=== PATIENT | male | born 1940 | race Caucasian/White ===

== ENCOUNTER 2018-10-03 17:33 | Inpatient (IN) ==
[2018-10-03] MEDS ORDERED: AMPICILLIN/SULBACTAM SOD 3,000 MG in 0.9 % SODIUM CHLORIDE 100 ML IV STA (18:12)
[2018-10-03] MEDS ORDERED: SODIUM CHLORIDE 0.9% 1000ML 1,000 ML IV SCH (18:15)
--- NOTE | 2018-10-03 18:21 | Emergency Department Note ---
Entered by Reid Mcconnell acting as a scribe for Trevor Allen MD History of Present Illness General Chief complaint: Shortness of Breath/Dyspnea Stated complaint: BLOOD CLOTS IN LUNGS Time Seen by Provider: 10/03/18 17:44 Source: patient History of Present Illness Onset (ago): day(s) (18) Location: abdomen Pain Consistency: + other (persistent) Quality: + other (bilateral pulmonary emboli and diverticulitis) Associated symptoms: no chest pain, no nausea/vomiting and no shortness of breath The patient is a 78 year old male who presents to the Emergency Room after referral from his PCP for an outpatient CT of the abdomen showing bilateral pulmonary emboli and diverticulitis. The patient reports that the CT was taken 3 days ago, and results were obtained today. He reports some persistent upper abdominal pain but denies any chest pain, shortness of breath, nausea, or vomiting. He states that he is on Coumadin for atrial fibrillation, and he was temporarily off of it for a week due to a colonoscopy performed on September 13. He notes that his most recent INR was normal, and he does not recall any history of sudden changes in his INR. He states that his current symptoms started 18 days ago, two days after his colonoscopy. He notes that his abdominal pain initially started in the lower region and migrated to the upper region. Home Medications Home Medications Medication Instructions Recorded Confirmed Type allopurinol 300 mg PO DAILY 10/03/18 10/03/18 History benazepril 10 mg PO DAILY 10/03/18 10/03/18 History cholecalciferol (vitamin D3) 0 unit PO DAILY 10/03/18 10/03/18 History [Vitamin D3] docusate sodium 100 mg PO BID 10/03/18 10/03/18 History finasteride 5 mg PO DAILY 10/03/18 10/03/18 History fluticasone propionate [Flonase 2 spray INTRANASAL DAILY 10/03/18 10/03/18 History Allergy Relief] magnesium 0 mg PO DAILY 10/03/18 10/03/18 History metoprolol succinate 100 mg PO DAILY 10/03/18 10/03/18 History omeprazole 20 mg PO DAILY 10/03/18 10/03/18 History polyethylene glycol 3350 [Miralax] 17 g PO DAILY PRN 10/03/18 10/03/18 History solifenacin [Vesicare] 5 mg PO DAILY 10/03/18 10/03/18 History tamsulosin [Flomax] 0.4 mg PO DAILY 10/03/18 10/03/18 History vit C,B-Fv-objar-lutein-zeaxan 1 tab PO BID 10/03/18 10/03/18 History [PreserVision AREDS-2] vitamin B complex 1 cap PO DAILY 10/03/18 10/03/18 History warfarin [Coumadin] 4 mg PO Q OTHER DAY 10/03/18 10/03/18 History warfarin [Coumadin] 8 mg PO Q OTHER DAY 10/03/18 10/03/18 History Allergies Allergy/AdvReac Type Severity Reaction Status Date / Time No Known Allergies Allergy Unverified 10/03/18 19:15 Past Med/Surg History Medical History Atrial fibrillation Surgical History History of colonoscopy Family History Other Family history non-contributory Social History Preferred Language: Kinyarwanda Communication Ability: Effective [employer] Architect Required: No Beliefs That Will Affect Care: None Current Living Situation: Spouse Feels Safe at Home: Yes Safety Concerns: Feels Safe At This Time Smoking Status: Never smoker Hx Alcohol Use: Yes Alcohol type: beer Hx Substance Use: No Review of Systems See HPI for pertinent positives & negatives. and A total of 10 systems reviewed and were otherwise negative Physical Exam Vital Signs Vital Signs - 24 hr 10/03/18 17:34 10/03/18 17:36 10/03/18 17:51 Temperature 37.1 C Temperature Source Oral Sepsis Recent Fever Within 48 Hours No Sepsis New/Unexplained Change in Mental Status No Sepsis Action Taken by Nursing No Action Required Pulse Rate 109 H 100 H Pulse Rate from SpO2 Sensor Pulse Rhythm Respiratory Rate 18 22 Respiratory Effort / Characteristics Non-Labored Spontaneous Non-Labored Spontaneous Respiratory Depth Normal Normal Respiratory Pattern Regular Regular Blood Pressure 168/90 H Blood Pressure Mean 116 Blood Pressure Position Sitting Pulse Oximetry 95 96 Oxygen Delivery Method Room Air Room Air Oxygen Flow Rate 94 10/03/18 18:00 10/03/18 18:10 10/03/18 18:30 Temperature Temperature Source Sepsis Recent Fever Within 48 Hours Sepsis New/Unexplained Change in Mental Status Sepsis Action Taken by Nursing Pulse Rate 95 H 115 H 97 H Pulse Rate from SpO2 Sensor Pulse Rhythm Irregular Respiratory Rate 25 H 24 Respiratory Effort / Characteristics Respiratory Depth Respiratory Pattern Blood Pressure Blood Pressure Mean Blood Pressure Position Pulse Oximetry 96 98 95 Oxygen Delivery Method Room Air Oxygen Flow Rate 10/03/18 19:00 10/03/18 19:29 10/03/18 19:31 Temperature Temperature Source Sepsis Recent Fever Within 48 Hours Sepsis New/Unexplained Change in Mental Status Sepsis Action Taken by Nursing Pulse Rate 106 H 98 H 128 H Pulse Rate from SpO2 Sensor 120 H Pulse Rhythm Respiratory Rate 21 19 21 Respiratory Effort / Characteristics Respiratory Depth Respiratory Pattern Blood Pressure 172/101 H Blood Pressure Mean 124 Blood Pressure Position Pulse Oximetry 96 97 95 Oxygen Delivery Method Oxygen Flow Rate 10/03/18 20:00 10/03/18 20:01 10/03/18 21:00 Temperature Temperature Source Sepsis Recent Fever Within 48 Hours Sepsis New/Unexplained Change in Mental Status Sepsis Action Taken by Nursing Pulse Rate 93 H 82 85 Pulse Rate from SpO2 Sensor Pulse Rhythm Respiratory Rate 22 24 20 Respiratory Effort / Characteristics Respiratory Depth Respiratory Pattern Blood Pressure 162/94 H 162/94 H Blood Pressure Mean 116 116 Blood Pressure Position Pulse Oximetry 98 97 Oxygen Delivery Method Oxygen Flow Rate 10/03/18 21:01 Temperature Temperature Source Sepsis Recent Fever Within 48 Hours Sepsis New/Unexplained Change in Mental Status Sepsis Action Taken by Nursing Pulse Rate 84 Pulse Rate from SpO2 Sensor Pulse Rhythm Respiratory Rate 24 Respiratory Effort / Characteristics Respiratory Depth Respiratory Pattern Blood Pressure 164/101 H Blood Pressure Mean 122 Blood Pressure Position Pulse Oximetry Oxygen Delivery Method Oxygen Flow Rate GENERAL: Awake, alert, fatigued-appearing, in no distress HENT: Normocephalic, atraumatic. Oropharynx unremarkable. EYES: Normal conjunctiva. Sclera non-icteric. NECK: Supple. No nuchal rigidity. FROM. No JVD. RESPIRATORY: Clear to auscultation bilaterally. CARDIAC: Tachycardic rate, irregular rhythm. Extremities warm and well perfused. Pulses equal. ABDOMEN: Soft, non-distended. Generalized abdominal discomfort without discrete tenderness. No rebound or guarding. No masses. RECTAL: Deferred. MUSCULOSKELETAL: Chest examination reveals no tenderness. The back is symmet rical on inspection without obvious abnormality. There is no CVA tenderness to palpation. No joint edema. LOWER EXTREMITIES: Calves are equal size bilaterally and non-tender. No edema. No discoloration. NEURO: Normal sensorium. No sensory or motor deficits noted. SKIN: No rash or jaundice noted. Course 1755: The patient was evaluated in room A9B. A complete history and physical examination were performed. 1805: I informed [facility] of the patients case. She requests we obtain a CT of the chest. 1954: [facility]. The patient will be reevaluated for hospitalization. Administered Medications Sodium Chloride (Nss 1000ml) 1,000 mls @ 50 mls/hr IV .Q20H ONE Stop: 10/04/18 18:00 Last Admin: 10/03/18 23:11 Dose: 50 mls/hr Documented by: [id number] Miscellaneous (Order Awaiting Action) 1 ea N/A QS KUN Stop: 11/03/18 00:00 Last Admin: 10/03/18 23:20 Dose: Not Given Documented by: [id number] Discontinued Medications Benazepril HCl (Lotensin) 10 mg PO 2100 ONE Stop: 10/03/18 21:01 Last Admin: 10/03/18 20:57 Dose: 10 mg Documented by: [id number] Sodium Chloride (Nss 1000ml) 1,000 mls @ 999 mls/hr IV .Q1H1M KUN Stop: 10/03/18 19:15 Last Infusion: 10/03/18 19:29 Dose: 0 mls/hr Documented by: [id number] Admin: 10/03/18 18:29 Dose: 999 mls/hr Documented by: [id number] Ampicillin Sodium/Sulbactam Sodium 3,000 mg/ Sodium Chloride 108 mls @ 200 mls/hr IV NOW STA; Protocol Stop: 10/03/18 18:44 Last Infusion: 10/03/18 19:04 Dose: 0 mls/hr Documented by: [id number] Admin: 10/03/18 18:29 Dose: 200 mls/hr Documented by: [id number] Sodium Chloride (Nss 1000ml) 1,000 mls @ 150 mls/hr IV .Q6H40M ONE Stop: 10/04/18 02:47 Last Admin: 10/03/18 20:59 Dose: Not Given Documented by: [id number] Ioversol (Optiray 320 125ml) 117 ml IV ONCE PRN PRN Reason: Interaction Checking Stop: 10/07/18 19:19 Last Admin: 10/03/18 19:20 Dose: 117 ml Documented by: [id number] Metoprolol Succinate (Toprol Xl) 100 mg PO 2100 ONE Stop: 10/03/18 21:01 Last Admin: 10/03/18 20:57 Dose: 100 mg Documented by: [id number] Warfarin Sodium (Coumadin) 2 mg PO NOW STA Stop: 10/03/18 21:39 Last Admin: 10/03/18 22:21 Dose: 2 mg Documented by: [id number] Medical Decision Making Differential Diagnosis Differential diagnosis includes: appendicitis, diverticulitis, PUD, biliary pathology, UTI, pancreatitis, obstruction, mesenteric ischemia, aortic p athology, infections, inflammatory bowel disease, renal colic, as well as others were entertained. Medical Records Attestation: I reviewed the patient's medical records. Home Medications Current Medication List: was personally reviewed by me Laboratory Data Attestation: I reviewed the patient's lab results. Result diagrams: 10/03/18 17:50 10/03/18 17:50 Lab Results 10/03/18 10/03/18 10/03/18 Range/Units 17:50 17:50 17:50 WBC 9.19 (4.8-10.8) K/uL RBC 4.33 L (4.7-6.1) M/uL Hgb 14.0 (14.0-18.0) g/dL Hct 40.6 L (42-52) % MCV 93.8 (80-100) fL MCH 32.3 (25-34) pg MCHC 34.5 (32-36) g/dL RDW Std Deviation 48.8 H (36.4-46.3) fL RDW Coeff of Chi 14.2 (11.5-14.5) % Plt Count 334 (130-400) K/uL MPV 9.0 (7.4-10.4) fL Immature Gran % (Auto) 1.4 % Neut % (Auto) 63.6 % Lymph % (Auto) 27.6 % Gibson % (Auto) 6.2 % Eos % (Auto) 1.0 % Baso % (Auto) 0.2 % Immature Gran # (Auto) 0.13 H (0.00-0.02) K/uL Neut # (Auto) 5.84 (1.4-6.5) K/uL Lymph # (Auto) 2.54 (1.2-3.4) K/uL Gibson # (Auto) 0.57 (0.11-0.59) K/uL Eos # (Auto) 0.09 (0-0.5) K/uL Baso # (Auto) 0.02 (0-0.2) K/uL PT 19.5 H (9.0-12.0) Seconds INR 2.0 H (0.9-1.1) Sodium 137 (136-145) mmol/L Potassium 4.5 (3.5-5.1) mmol/L Chloride 104 (98-107) mmol/L Carbon Dioxide 26 (21-32) mmol/L Anion Gap 7.0 (3-11) BUN 14 (7-18) mg/dl Creatinine 0.80 (0.6-1.4) mg/dl Est Cr Clr Drug Dosing 79.7 ml/min Est GFR ( Amer) 98.5 Est GFR (Non-Af Amer) 85.0 BUN/Creatinine Ratio 18.0 (10-20) Glucose 113 H (70-99) mg/dl Calcium 9.8 (8.5-10.1) mg/dl Magnesium 2.2 (1.8-2.4) mg/dl Total Bilirubin 0.4 (0.2-1) mg/dl Direct Bilirubin 0.1 (0-0.2) mg/dl AST 28 (15-37) U/L ALT 54 (12-78) U/L Alkaline Phosphatase 74 (45-117) U/L Troponin I < 0.015 (0-0.045) ng/ml NT-Pro-B Natriuret Pep 854 (0-1800) pg/ml Total Protein 7.3 (6.4-8.2) gm/dl Albumin 2.7 L (3.4-5.0) gm/dl Globulin 4.6 H (2.5-4.0) gm/dl Albumin/Globulin Ratio 0.6 L (0.9-2) Lipase 172 (73-393) U/L Imaging Data Radiologist's Impression: Radiology results as stated below per my review and the radiologist's interpretation: CT angio chest PE protocol CT DOSE: 512.66 mGy.cm HISTORY: Chest pain PE TECHNIQUE: Multiaxial CT images of the chest were performed following the intravenous administration of contrast to evaluate the pulmonary arteries. Maximal intensity projection images were also obtained. A dose lowering technique was utilized adhering to the principles of ALARA. COMPARISON STUDY: None. FINDINGS: Study is positive for bilateral pulmonary emboli. There is a large pulmonary embolus involving the distal right main pulmonary artery with extension to the right lower lobe as well as proximal right upper lobe pulmonary vasculature. Similar but less prominent findings are identified involving the left lower lobe pulmonary arterial distribution. There are findings of atelectatic atelectatic change versus early pulmonary infarct involving the right as well as left lower lobe regions. IMPRESSION: 1. This study is positive for bilateral pulmonary emboli. 2. This involves primarily the right as well as left lower lobe pulmonary arterial distributions as well as distal aspects of the main pulmonary arteries bilaterally. 3. Developing bibasilar pulmonary infarcts versus peripheral atelectatic change. The above report was generated using voice recognition software. It may contain grammatical, syntax or spelling errors. Electronically signed by: Elvis Jerez M.D. 10/03/2018 7:28 PM XR chest 1V portable CLINICAL HISTORY: Chest Pain pain COMPARISON STUDY: No previous studies for comparison. FINDINGS: Mild cardiomegaly. Mild prominence pulmonary vasculature. Mild platelike atelectasis both lung bases. IMPRESSION: Mild cardiomegaly. No acute process. The above report was generated using voice recognition software. It may contain grammatical, syntax or spelling errors. Electronically signed by: Elvis Jerez M.D. 10/03/2018 6:29 PM ECG Data Attestation: I personally reviewed and interpreted this ECG as follows: Indication: tachycardia Rate (beats per minute): 108 Rhythm: atrial fibrillation (with RVR) Findings: + other (normal axis, no overt ischemia) MDM Narrative The patient is a pleasant 78-year-old gentleman with a past medical history of atrial fibrillation on Coumadin who presents emergency department for evaluation after bilateral pulmonary embolism with associated infarctions and diverticulitis were observed on outpatient CT of his abdomen pelvis performed for ongoing abdominal pain since a colonoscopy on September 13 per hpi. Of note, the patient reports stopping his Coumadin 1 week prior to his colonoscopy and then resumed his Coumadin the day after. Patient denies chest pain or shortness of breath however reports he has had ongoing migraine abdominal pain since his colonoscopy. On arrival patient is in no acute distress, afebrile with heart rate in the 100s and vital signs otherwise stable. EKG demonstrates A. fib without overt acute ischemia. Chest x-ray with platelike atelectasis and otherwise unremarkable. WBC, hemoglobin, platelets within normal limits. INR is therapeutic at 2.0. Chemistry without acidosis. Troponin negative. BNP within normal limits. Electrolytes and LFTs unremarkable. Case was discussed with Aurelia CAAL shortly after patient's arrival given the patient's outpatient CT findings. Requests CT of the chest to further evaluate clot burden. CT of the chest performed and demonstrates bilateral pulmonary emboli with involvement of distal main pulmonary arteries and evidence of developing infarcts. Case was discussed with Dr. Campos, [facility] hospitalist, who will evaluate the patient for admission. He will evaluate the patient and decide on anticoagulation going forward. Impression & Plan Pulmonary embolism, bilateral, Pulmonary infarction, Diverticulitis Discharge Plan Visit Data *Final* Discharge Date/Time: 10/03/18 21:51 Chief Complaint: Shortness of Breath/Dyspnea Stated Complaint: BLOOD CLOTS IN LUNGS ED Provider: Trevor Allen Discharge Problem: Pulmonary embolism, bilateral, Pulmonary infarction, Diverticulitis Patient Disposition: Admitted As Inpatient Discharge Instructions Interventions: ED Discharge Assessment Last Done: 10/03/18 21:51 The scribe's documentation has been prepared under my direction and personally reviewed by me in its entirety. I confirm that the note above accurately reflects all work, treatment, procedures, and medical decision making performed by me.
[2018-10-03 18:25] LABS: Basophils # (auto) 0.02 K/uL (0-0.2); Basophils % (auto) 0.2 %; Eosinophils # (auto) 0.09 K/uL (0-0.5); Hematocrit (blood only) 40.6 % (42-52); Immature Granulocytes # (auto) 0.13 K/uL (0.00-0.02); Immature Granulocytes % (auto) 1.4 %; Lymphocytes # (auto) 2.54 K/uL (1.2-3.4); Lymphocytes % (auto) 27.6 %; Mean Corpuscular Hgb Conc 34.5 g/dL (32-36); Mean Corpuscular Volume 93.8 fL (80-100); Monocytes # (auto) 0.57 K/uL (0.11-0.59); Monocytes % (auto) 6.2 %; Neutrophils # (auto) 5.84 K/uL (1.4-6.5); Neutrophils % (auto) 63.6 %; Platelet Count 334 K/uL (130-400); RDW Coefficient of Variation 14.2 % (11.5-14.5); RDW Standard Deviation 48.8 fL (36.4-46.3); Red Blood Count 4.33 M/uL (4.7-6.1); White Blood Count 9.19 K/uL (4.8-10.8)
--- NOTE | 2018-10-03 18:30 | XRay Report ---
XR chest 1V portable CLINICAL HISTORY: Chest Pain pain COMPARISON STUDY: No previous studies for comparison. FINDINGS: Mild cardiomegaly. Mild prominence pulmonary vasculature. Mild platelike atelectasis both l lizz bases. IMPRESSION: Mild cardiomegaly. No acute process. The above report was generated using voice recognition software. It may contain grammatical, syntax or spelling errors. Electronically signed by: Elvis Jerez M.D. 10/03/2018 6:29 PM
[2018-10-03 18:38] LABS: Alanine Aminotransferase 54 U/L (12-78); Albumin Level 2.7 gm/dl (3.4-5.0); Aspartate Aminotransferase 28 U/L (15-37); Bilirubin Direct 0.1 mg/dl (0-0.2); Blood Urea Nitrogen 14 mg/dl (7-18); Calcium 9.8 mg/dl (8.5-10.1); Carbon Dioxide 26 mmol/L (21-32); Chloride 104 mmol/L (98-107); Creatinine Clr Calc Pharmacy 79.7 ml/min; Est GFR (African American) 98.5; Glucose 113 mg/dl (70-99); Magnesium 2.2 mg/dl (1.8-2.4); Potassium 4.5 mmol/L (3.5-5.1); Sodium 137 mmol/L (136-145)
[2018-10-03 18:43] LABS: Albumin Globulin Ratio 0.6 (0.9-2); Alkaline Phosphatase 74 U/L (45-117); Bilirubin,Total 0.4 mg/dl (0.2-1); Globulin 4.6 gm/dl (2.5-4.0); NT Pro B Type Natriuretic Pept 854 pg/ml (0-1800); Total Protein 7.3 gm/dl (6.4-8.2); Troponin I < 0.015 ng/ml (0-0.045)
[2018-10-03 18:44] LABS: Prothrombin Time 19.5 Seconds (9.0-12.0)
[2018-10-03] MEDS ORDERED: OPTIRAY 320 125ml IV PRN (19:20)
--- NOTE | 2018-10-03 19:29 | CT Scan Report ---
CT angio chest PE protocol CT DOSE: 512.66 mGy.cm HISTORY: Chest pain PE TECHNIQUE: Multiaxial CT images of the chest were performed following the intravenous administration of contrast to evaluate the pulmonary arteries. Maximal intensity projection images were also obtaine d. A dose lowering technique was utilized adhering to the principles of ALARA. COMPARISON STUDY: None. FINDINGS: Study is positive for bilateral pulmonary emboli. There is a large pulmonary embolus involv ing the distal right main pulmonary artery with extension to the right lower lobe as well as proximal right upper lobe pulmonary vasculature. Similar but less prominent findings are identified involving the left lower lobe pulmonary arterial d istribution. There are findings of atelectatic atelectatic change versus early pulmonary infarct involving the rig ht as well as left lower lobe regions. IMPRESSION: 1. This study is positive for bilateral pulmonary emboli. 2. This involves primarily the right as well as left lower lobe pulmonary arterial distributions as w ell as distal aspects of the main pulmonary arteries bilaterally. 3. Developing bibasilar pulmonary infarcts versus peripheral atelectatic change. The above report was generated using voice recognition software. It may contain grammatical, syntax or spelling errors. Electronically signed by: Elvis Jerez M.D. 10/03/2018 7:28 PM
[2018-10-03] MEDS ORDERED: METOPROLOL TARTRATE 1 MG/ML VIAL IV STA (20:08)
[2018-10-03] MEDS ORDERED: SODIUM CHLORIDE 0.9% 1000ML 1,000 ML IV ONE ×2 (20:08→22:01)
[2018-10-03] MEDS ORDERED: METOPROLOL SUCC 50MG EXT REL TAB PO ONE (21:00)
[2018-10-03] MEDS ORDERED: BENAZEPRIL HCL 10 MG TAB PO ONE (21:00)
--- NOTE | 2018-10-03 21:27 | History & Physical Report ---
Date of Service October 03, 2018 Assessment & Plan (1) Pulmonary embolism, bilateral: First episode Recent GI illness (uncomplicated diverticulitis) may have predisposed patient, patient not septic. Coumadin for A. fib temporarily held halted 3 weeks ago for colonoscopy procedure. INR slightly subtherapeutic last September 28 Rule out LE veins as source of PE A. fib on Coumadin, rate controlled, INR therapeutic hypertension, elevated secondary to medication noncompliance (Patient admits to taking his 2 BP meds an every other day schedule despite recommended daily intake. hyperlipidemia on statin Rx BPH on meds prediabetes as to per records, recent outpatient hemoglobin A1c of 5.7 last August 2018 past tobacco abuse Medical telemetry Continue Coumadin INR goal between 2 and 3 LE venous Dopplers rule out DVT Facilitate home BP meds, patient instructed to take home BP meds as per schedule daily instructions Clear liquids for now, Augmentin course for uncomplicated diverticulitis. DVT prophylaxis. Coumadin INR goal 2-3 Full code History of Present Illness Chief Complaint: Abnormal CAT scan Primary Care Provider: Xochilt Quiroz DO History obtained from patient, family, and records. Medical history significant for A. fib on Coumadin, hypertension, hyperlipidemia, BPH, diverticulosis, hemorrhoids, prediabetes as per records, past tobacco abuse. Patient underwent outpatient colonoscopy 3 weeks ago for dark stools. Colonoscopy showed diverticulosis, hemorrhoids. Coumadin stopped 5 days before procedure, subsequently resumed a day after colonoscopy as per patient. Patient seen at PCPs office last September 28 for abdominal pain, constipation, nausea, poor appetite symptoms. Patient denies chest pain, S OB, leg swelling. Fairly active during illness. Outpatient KUB showed constipation, no SBO. PPI and bowel regimen started. INR last September 28 was 1.97. Patient instructed to continue usual Coumadin regimen by Coumadin clinic. Patient seen on follow-up at PCPs office today. Abdominal symptoms resolved. Patient complaining of not feeling well, feeling tired and fatigued. Outpatient CT abdomen pelvis done last September 30 resulted today showed bilateral lower lobe PE, greater on the right with peripheral pulmonary opacity suggestive of pulmonary infarcts. No right heart strain. Uncomplicated diverticulitis without perforation or abscess. Prostatomegaly, cardiomegaly. Patient directed to the emergency room. 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 Allergies Allergy/AdvReac Type Severity Reaction Status Date / Time No Known Allergies Allergy Unverified 10/03/18 19:15 Home Medications Home Medications Medication Instructions Recorded Confirmed Type allopurinol 300 mg PO DAILY 10/03/18 10/03/18 History benazepril 10 mg PO DAILY 10/03/18 10/03/18 History cholecalciferol (vitamin D3) 0 unit PO DAILY 10/03/18 10/03/18 History [Vitamin D3] docusate sodium 100 mg PO BID 10/03/18 10/03/18 History finasteride 5 mg PO DAILY 10/03/18 10/03/18 History fluticasone propionate [Flonase 2 spray INTRANASAL DAILY 10/03/18 10/03/18 History Allergy Relief] magnesium 0 mg PO DAILY 10/03/18 10/03/18 History metoprolol succinate 100 mg PO DAILY 10/03/18 10/03/18 History omeprazole 20 mg PO DAILY 10/03/18 10/03/18 History polyethylene glycol 3350 [Miralax] 17 g PO DAILY PRN 10/03/18 10/03/18 History solifenacin [Vesicare] 5 mg PO DAILY 10/03/18 10/03/18 History tamsulosin [Flomax] 0.4 mg PO DAILY 10/03/18 10/03/18 History vit C,V-Uh-qfhdj-lutein-zeaxan 1 tab PO BID 10/03/18 10/03/18 History [PreserVision AREDS-2] vitamin B complex 1 cap PO DAILY 10/03/18 10/03/18 History warfarin [Coumadin] 4 mg PO Q OTHER DAY 10/03/18 10/03/18 History warfarin [Coumadin] 8 mg PO Q OTHER DAY 10/03/18 10/03/18 History Past Med/Surg History Medical History Atrial fibrillation Surgical History History of colonoscopy Family History Other Family history non-contributory Social History Preferred Language: [place] Communication Ability: Effective Student Success Coach Required: No Beliefs That Will Affect Care: None Current Living Situation: Spouse Feels Safe at Home: Yes Safety Concerns: Feels Safe At This Time Smoking Status: Never smoker Hx Alcohol Use: Yes Alcohol type: beer Hx Substance Use: No Review of Systems Review of Systems: As per HPI, all 10 systems reviewed, all other ROS negative Physical Exam Physical Exam: GENERAL: Comfortable, pleasant, slightly hard of hearing, no respiratory distress SKIN: Normal color, warm HEENT: Partial alopecia, bespectacled, pink palpebral conjunctivae, no ptosis, dry buccal mucosa NECK : Supple, no tenderness CHEST : CTA, no tenderness HEART : Irregular , no obvious murmurs ABDOMEN: Some distention, nontender EXTREMITIES : No LE swelling/tenderness, no other conspicuous deformities noted NEUROLOGIC : Coherent, no facial asymmetry, slightly hard of hearing, no other gross focality Results & Data Vital Signs (Past 12 Hours) Vital Signs Temp Pulse Resp BP Pulse Ox 10/03/18 21:01 84 24 164/101 H 10/03/18 21:00 85 20 162/94 H 10/03/18 20:01 82 24 162/94 H 97 10/03/18 20:00 93 H 22 98 10/03/18 19:31 128 H 21 95 10/03/18 19:29 98 H 19 172/101 H 97 10/03/18 19:00 106 H 21 96 10/03/18 18:30 97 H 24 95 10/03/18 18:10 115 H 98 10/03/18 18:00 95 H 25 H 96 10/03/18 17:51 100 H 22 10/03/18 17:36 37.1 C 109 H 18 168/90 H 96 10/03/18 17:34 95 Laboratory Results Laboratory Results WBC 9.19 K/uL (4.8-10.8) 10/03/18 17:50 RBC 4.33 M/uL (4.7-6.1) L 10/03/18 17:50 Hgb 14.0 g/dL (14.0-18.0) 10/03/18 17:50 Hct 40.6 % (42-52) L 10/03/18 17:50 MCV 93.8 fL (80-100) 10/03/18 17:50 MCH 32.3 pg (25-34) 10/03/18 17:50 MCHC 34.5 g/dL (32-36) 10/03/18 17:50 RDW Std Deviation 48.8 fL (36.4-46.3) H 10/03/18 17:50 RDW Coeff of Chi 14.2 % (11.5-14.5) 10/03/18 17:50 Plt Count 334 K/uL (130-400) 10/03/18 17:50 MPV 9.0 fL (7.4-10.4) 10/03/18 17:50 Immature Gran % (Auto) 1.4 % 10/03/18 17:50 Neut % (Auto) 63.6 % 10/03/18 17:50 Lymph % (Auto) 27.6 % 10/03/18 17:50 [place] % (Auto) 6.2 % 10/03/18 17:50 Eos % (Auto) 1.0 % 10/03/18 17:50 Baso % (Auto) 0.2 % 10/03/18 17:50 Immature Gran # (Auto) 0.13 K/uL (0.00-0.02) H 10/03/18 17:50 Neut # (Auto) 5.84 K/uL (1.4-6.5) 10/03/18 17:50 Lymph # (Auto) 2.54 K/uL (1.2-3.4) 10/03/18 17:50 [place] # (Auto) 0.57 K/uL (0.11-0.59) 10/03/18 17:50 Eos # (Auto) 0.09 K/uL (0-0.5) 10/03/18 17:50 Baso # (Auto) 0.02 K/uL (0-0.2) 10/03/18 17:50 PT 19.5 Seconds (9.0-12.0) H 10/03/18 17:50 INR 2.0 (0.9-1.1) H 10/03/18 17:50 Sodium 137 mmol/L (136-145) 10/03/18 17:50 Potassium 4.5 mmol/L (3.5-5.1) 10/03/18 17:50 Chloride 104 mmol/L (98-107) 10/03/18 17:50 Carbon Dioxide 26 mmol/L (21-32) 10/03/18 17:50 Anion Gap 7.0 (3-11) 10/03/18 17:50 BUN 14 mg/dl (7-18) 10/03/18 17:50 Creatinine 0.80 mg/dl (0.6-1.4) 10/03/18 17:50 Est Cr Clr Drug Dosing 79.7 ml/min 10/03/18 17:50 Est GFR ( Amer) 98.5 10/03/18 17:50 Est GFR (Non-Af Amer) 85.0 10/03/18 17:50 BUN/Creatinine Ratio 18.0 (10-20) 10/03/18 17:50 Glucose 113 mg/dl (70-99) H 10/03/18 17:50 Calcium 9.8 mg/dl (8.5-10.1) 10/03/18 17:50 Magnesium 2.2 mg/dl (1.8-2.4) 10/03/18 17:50 Total Bilirubin 0.4 mg/dl (0.2-1) 10/03/18 17:50 Direct Bilirubin 0.1 mg/dl (0-0.2) 10/03/18 17:50 AST 28 U/L (15-37) 10/03/18 17:50 ALT 54 U/L (12-78) 10/03/18 17:50 Alkaline Phosphatase 74 U/L (45-117) 10/03/18 17:50 Troponin I < 0.015 ng/ml (0-0.045) 10/03/18 17:50 NT-Pro-B Natriuret Pep 854 pg/ml (0-1800) 10/03/18 17:50 Total Protein 7.3 gm/dl (6.4-8.2) 10/03/18 17:50 Albumin 2.7 gm/dl (3.4-5.0) L 10/03/18 17:50 Globulin 4.6 gm/dl (2.5-4.0) H 10/03/18 17:50 Albumin/Globulin Ratio 0.6 (0.9-2) L 10/03/18 17:50 Lipase 172 U/L (73-393) 10/03/18 17:[address] chest: 1. This study is positive for bilateral pulmonary emboli. 2. This involves primarily the right as well as left lower lobe pulmonary arterial distributions as well as distal aspects of the main pulmonary arteries bilaterally. 3. Developing bibasilar pulmonary infarcts versus peripheral atelectatic change. EKG as per my interpretation: Rate 110, A. fib, no ischemia
[2018-10-03] MEDS ORDERED: WARFARIN SOD 2 MG TAB PO STA (21:38)
[2018-10-03] MEDS ORDERED: TRAMADOL HCL 50 MG TABLET PO PRN (22:01)
[2018-10-03] MEDS ORDERED: PROMETHAZINE HCL 12.5 MG in SODIUM CHLORIDE 0.9% 50 ML IV PRN (22:01)
[2018-10-03] MEDS ORDERED: ACETAMINOPHEN 325 MG TAB PO PRN (22:01)
[2018-10-03] MEDS ORDERED: POLYETHYLENE (MIRALAX) 17 GM PACK PO PRN (22:01)
[2018-10-03] MEDS: SOLIFENACIN 5 MG SCH (23:20)
--- NOTE | 2018-10-04 06:45 | Ultrasound Report ---
US venous doppler LE BI CLINICAL HISTORY: Pulmonary embolism workup COMPARISON STUDY: No previous studies for comparison. FINDINGS: On the right, there is wall thickening and chronic fibrous stranding within the common femoral and po pliteal vein. No acute thrombus is visualized. On the left, there is extensive thrombus seen within the common femoral greater saphenous superficial femoral and popliteal veins. There is thrombus within one of the peroneal veins. IMPRESSION: 1. Extensive acute left leg DVT 2. Chronic-appearing changes within the right leg Electronically signed by: Ancelmo Strauss M.D. 10/04/2018 6:43 AM
[2018-10-04 06:47] LABS: INR 2.1 (0.9-1.1); Prothrombin Time 20.5 Seconds (9.0-12.0)
[2018-10-04 06:48] LABS: Basophils # (auto) 0.03 K/uL (0-0.2); Basophils % (auto) 0.3 %; Eosinophils # (auto) 0.11 K/uL (0-0.5); Eosinophils % (auto) 1.3 %; Hematocrit (blood only) 38.3 % (42-52); Hemoglobin 12.9 g/dL (14.0-18.0); Immature Granulocytes # (auto) 0.11 K/uL (0.00-0.02); Immature Granulocytes % (auto) 1.3 %; Lymphocytes % (auto) 27.6 %; Mean Corpuscular Hgb Conc 33.7 g/dL (32-36); Mean Corpuscular Volume 93.6 fL (80-100); Monocytes # (auto) 0.46 K/uL (0.11-0.59); Monocytes % (auto) 5.3 %; Neutrophils # (auto) 5.59 K/uL (1.4-6.5); Neutrophils % (auto) 64.2 %; Platelet Count 319 K/uL (130-400); RDW Coefficient of Variation 14.1 % (11.5-14.5); RDW Standard Deviation 48.8 fL (36.4-46.3); Red Blood Count 4.09 M/uL (4.7-6.1)
[2018-10-04 07:08] LABS: BUN Creatinine Ratio 14.2 (10-20); Calcium 8.9 mg/dl (8.5-10.1); Creatinine Clr Calc Pharmacy 85.1 ml/min; Est GFR (African American) 101.1; Est GFR (Non-African American) 87.2; Potassium 4.4 mmol/L (3.5-5.1)
[2018-10-04] MEDS: SOLIFENACIN 5 MG SCH (07:59)
[2018-10-04] MEDS ORDERED: AMOXICILLIN/CLAVULANATE 875 MG TAB PO SCH (08:00)
[2018-10-04] MEDS ORDERED: METOPROLOL SUCC 50MG EXT REL TAB PO SCH (09:00)
[2018-10-04] MEDS ORDERED: ALLOPURINOL 300 MG TAB PO SCH (09:00)
[2018-10-04] MEDS ORDERED: AUGMENTIN~PHARMACY CONSULT IN PROGRESS PRN (09:00)
[2018-10-04] MEDS ORDERED: FLUTICASONE PROPIONATE NA SPR 16 GM BTL SCH (09:00)
[2018-10-04] MEDS ORDERED: VITAMIN B COMPLEX TAB PO SCH (09:00)
[2018-10-04] MEDS ORDERED: DOCUSATE SODIUM 100 MG CAP PO SCH (09:00)
[2018-10-04] MEDS ORDERED: PANTOprazole 40 MG TAB PO SCH (09:00)
[2018-10-04] MEDS ORDERED: TAMSULOSIN HCL 0.4 MG CAP PO SCH (09:00)
[2018-10-04] MEDS ORDERED: LISINOPRIL 10 MG TAB PO SCH (09:00)
[2018-10-04] MEDS ORDERED: FINASTERIDE 5 MG TAB PO SCH (09:00)
[2018-10-04] MEDS ORDERED: WARFARIN SOD 6 MG TAB PO SCH (10:07)
--- NOTE | 2018-10-04 12:00 | Hospitalist Progress Note ---
Date of Service October 04, 2018 Assessment & Plan (1) Pulmonary embolism, bilateral: Acute bilateral pulmonary emboli Acute left lower extremity DVT --CTA:This study is positive for bilateral pulmonary emboli. This involves primarily the right as well as left lower lobe pulmonary arterial distributions as well as distal aspects of the main pulmonary arteries bilaterally. Developing bibasilar pulmonary infarcts versus peripheral atelectatic change. --Venous Doppler:Extensive acute left leg DVT. Chronic-appearing changes within the right leg In setting of recent interruption of Coumadin therapy for 5 days (3 weeks ago) for colonoscopy --Denies any respiratory symptoms, leg swelling/pain --INR is therapeutic: 2.1 Continue Coumadin. Give 6mg coumadin today Saturating well on room air Needs close follow up with coumadin clinic upon discharge May need repeat Venous doppler of LE upon discharge for monitoring of progression Uncomplicated diverticulitis No signs of sepsis Denies any abdominal pain, diarrhea, blood in stools, fever Continue Augmentin Day # 2 Tolerating diet A. fib rate controlled INR therapeutic Continue metoprolol, Coumadin Hypertension elevated secondary to medication noncompliance Patient admits to taking his BP meds an every other day schedule despite recommended daily intake. Counselled about medication compliance Continue lisinopril, metoprolol Blood pressure stable Hyperlipidemia on statin BPH: Continue finasteride, flomax Prediabetes Hb A1c of 5.7 last August 2018 DVT Px: Coumadin Code Status Full code Disposition: Expect to discharge home when stable Subjective Patient is seen and examined at bedside States feeling tired but otherwise feels well Denies any chest pain, cough, shortness of breath, dizziness, nausea, abdominal pain, diarrhea, blood in stools Denies any bleeding issues, calf pain, leg sweeling Offers no other complaints Saturating 95% on room air Review of Systems Review of Systems: All systems reviewed & are unremarkable except as noted in HPI & below Physical Exam Physical Exam: Physical Exam: Vitals signs as noted above General Appearance:Moderately built and nourished, no apparent distress Head: normocephalic, Atraumatic Eyes: normal inspection, EOMI Neck: supple, Trachea midline Respiratory/Chest: Normal breath sounds, CTA Cardiovascular: Irregularly irregular rhythm, No murmur Abdomen/GI:Soft, Non tender, Bowel sounds present Extremities/Musculoskelatal:normal inspection, no edema Neurologic/Psych:AAOX3, grossly no focal neurological deficits Skin: normal color, warm Results & Data Vital Signs (Past 12 Hours) Vital Signs Temp Pulse Pulse Resp BP Pulse Ox 10/04/18 08:00 84 10/04/18 07:00 36.9 C 82 18 127/77 95 10/04/18 04:38 36.9 C 83 20 119/72 94 10/04/18 00:00 88 10/03/18 23:53 91 H 151/88 H Laboratory Results Short CBC 10/03/18 10/04/18 Range/Units 17:50 06:21 WBC 9.19 8.70 (4.8-10.8) K/uL Hgb 14.0 12.9 L (14.0-18.0) g/dL Hct 40.6 L 38.3 L (42-52) % Plt Count 334 319 (130-400) K/uL BMP 10/03/18 10/04/18 17:50 06:21 Sodium 137 137 Potassium 4.5 4.4 Chloride 104 106 Carbon Dioxide 26 26 BUN 14 11 Creatinine 0.80 0.75 Glucose 113 H 95 Calcium 9.8 8.9 Cardiac Enzymes 10/03/18 Range/Units 17:50 Troponin I < 0.015 (0-0.045) ng/ml Liver Function 10/03/18 Range/Units 17:50 Total Bilirubin 0.4 (0.2-1) mg/dl Direct Bilirubin 0.1 (0-0.2) mg/dl AST 28 (15-37) U/L ALT 54 (12-78) U/L Alkaline Phosphatase 74 (45-117) U/L Albumin 2.7 L (3.4-5.0) gm/dl
--- NOTE | 2018-10-04 12:21 | Discharge Summary ---
Date of Service October 04, 2018 Admission HPI Per Admitting Provider History obtained from patient, family, and records. Medical history significant for A. fib on Coumadin, hypertension, hyperlipidemia, BPH, diverticulosis, hemorrhoids, prediabetes as per records, past tobacco abuse. Patient underwent outpatient colonoscopy 3 weeks ago for dark stools. Colonoscopy showed diverticulosis, hemorrhoids. Coumadin stopped 5 days before procedure, subsequently resumed a day after colonoscopy as per patient. Patient seen at PCPs office last September 28 for abdominal pain, constipation, nausea, poor appetite symptoms. Patient denies chest pain, S OB, leg swelling. Fairly active during illness. Outpatient KUB showed constipation, no SBO. PPI and bowel regimen started. INR last September 28 was 1.97. Patient instructed to continue usual Coumadin regimen by Coumadin clinic. Patient seen on follow-up at PCPs office today. Abdominal symptoms resolved. Patient complaining of not feeling well, feeling tired and fatigued. Outpatient CT abdomen pelvis done last September 30 resulted today showed bilateral lower lobe PE, greater on the right with peripheral pulmonary opacity suggestive of pulmonary infarcts. No right heart strain. Uncomplicated diverticulitis without perforation or abscess. Prostatomegaly, cardiomegaly. Patient directed to the emergency room. 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 Admission Exam Per Admitting Provider GENERAL: Comfortable, pleasant, slightly hard of hearing, no respiratory distress SKIN: Normal color, warm HEENT: Partial alopecia, bespectacled, pink palpebral conjunctivae, no ptosis, dry buccal mucosa NECK : Supple, no tenderness CHEST : CTA, no tenderness HEART : Irregular , no obvious murmurs ABDOMEN: Some distention, nontender EXTREMITIES : No LE swelling/tenderness, no other conspicuous deformities noted NEUROLOGIC : Coherent, no facial asymmetry, slightly hard of hearing, no other gross focality Principal Diagnosis Discharge Information Discharge Diagnosis Acute pulmonary emboli Acute left lower extremity deep vein thrombosis Uncomplicated Diverticulitis Discharge Goals Decrease discomfort,Improve function,Improve disease control Discharge Activity Limitations Resume your previous activity Discharge Data Allergies Allergy/AdvReac Type Severity Reaction Status Date / Time No Known Allergies Allergy Unverified 10/03/18 19:15 Consultations 10/03/18 18:16 ED Decision to Admit Stat Procedures Performed Chest CTA: 1. This study is positive for bilateral pulmonary emboli. 2. This involves primarily the right as well as left lower lobe pulmonary arterial distributions as well as distal aspects of the main pulmonary arteries bilaterally. 3. Developing bibasilar pulmonary infarcts versus peripheral atelectatic change. Venous Doppler: 1. Extensive acute left leg DVT 2. Chronic-appearing changes within the right leg Ordered Studies 10/03/18 18:09 CT angio chest PE protocol Stat 10/03/18 22:01 US venous doppler LE BI Stat Hospital Course (1) Pulmonary embolism, bilateral: Acute bilateral pulmonary emboli Acute left lower extremity DVT --CTA:This study is positive for bilateral pulmonary emboli. This involves primarily the right as well as left lower lobe pulmonary arterial distributions as well as distal aspects of the main pulmonary arteries bilaterally. Developing bibasilar pulmonary infarcts versus peripheral atelectatic change. --Venous Doppler:Extensive acute left leg DVT. Chronic-appearing changes within the right leg In setting of recent interruption of Coumadin therapy for 5 days (3 weeks ago) for colonoscopy --Denies any respiratory symptoms, leg swelling/pain --INR is therapeutic: 2.1 Continue Coumadin. Give 6mg coumadin today Saturating well on room air Needs close follow up with coumadin clinic upon discharge May need repeat Venous doppler of LE upon discharge for monitoring of progression Uncomplicated diverticulitis No signs of sepsis Denies any abdominal pain, diarrhea, blood in stools, fever Continue Augmentin Day # 2 Tolerating diet A. fib rate controlled INR therapeutic Continue metoprolol, Coumadin Hypertension elevated secondary to medication noncompliance Patient admits to taking his BP meds an every other day schedule despite recommended daily intake. Counselled about medication compliance Continue lisinopril, metoprolol Blood pressure stable Hyperlipidemia on statin BPH: Continue finasteride, flomax Prediabetes Hb A1c of 5.7 last August 2018 DVT Px: Coumadin Code Status Full code Disposition: Expect to discharge home when stable Total Time Total Time Spent Total Time Spent (In Minutes): 38 minutes Total Time Includes: Examination of the Patient, Discharge Planning, Medication Reconciliation, Communication With Other Providers and Other Discharge Plan Discharge Items Patient Disposition: Home - Self-Care Reason For Visit: PE Discharge Diagnosis: Acute pulmonary emboli Acute left lower extremity deep vein thrombosis Uncomplicated Diverticulitis Discharge Goals: Decrease discomfort, Improve disease control and Improve function Activity: Resume your previous activity Exercise/Sports: Gradually increase as tolerated Non-emergency contact: Primary Care Provider Call non-emergency contact if: you have any medication questions, your symptoms worsen, your pain is not controlled, your pain is worsening, your pain is unusual for you, your pain is concerning for you and you have a fever Follow-up/Referrals: Xochilt Quiroz DO [Primary Care Provider] - Diet: Heart Healthy Other Ambulatory Orders: Prothrombin Time INR (Routine) Timeframe: 3 Days Location: Determined by Patient Ordered By: Reagan Crook US venous doppler LE BI (Routine) Timeframe: 1 Week Location: Determined by Patient Ordered By: Reagan Crook Addtl Provider Instructions: Follow-up with Dr. Velasquez on October 10, 2018 at 11:05 AM for primary care Follow-up with Coumadin clinic in 3 days as advised Complete the antibiotic course as prescribed Get repeat venous Doppler study of legs in 1-2 weeks and follow-up with your physician with results Seek immediate medical attention if your symptoms reoccur or worsen Prescriptions: New amoxicillin-pot clavulanate 875-125 mg Tablet 1 tab PO BIDM 6 Days Qty: 12 RF: 0 Continued polyethylene glycol 3350 [Miralax] 17 gram Powder In Packet 17 g PO DAILY PRN (Reason: Constipation) RF: 0 metoprolol succinate 100 mg Tablet Extended Release 24 Hr 100 mg PO DAILY RF: 0 warfarin [Coumadin] 4 mg Tablet 4 mg PO Q OTHER DAY RF: 0 warfarin [Coumadin] 4 mg Tablet 8 mg PO Q OTHER DAY RF: 0 tamsulosin [Flomax] 0.4 mg Capsule 0.4 mg PO DAILY RF: 0 omeprazole 20 mg Capsule,Delayed Release(Dr/Ec) 20 mg PO DAILY RF: 0 allopurinol 300 mg Tablet 300 mg PO DAILY RF: 0 magnesium 250 mg Tablet PO DAILY RF: 0 benazepril 10 mg Tablet 10 mg PO DAILY RF: 0 fluticasone propionate [Flonase Allergy Relief] 50 mcg/actuation [place],Suspension 2 spray intranasal DAILY RF: 0 docusate sodium 100 mg Tablet 100 mg PO BID RF: 0 finasteride 5 mg Tablet 5 mg PO DAILY RF: 0 vitamin B complex Capsule 1 cap PO DAILY RF: 0 cholecalciferol (vitamin D3) [Vitamin D3] 1,000 unit Capsule PO DAILY RF: 0 solifenacin [Vesicare] 5 mg Tablet 5 mg PO DAILY RF: 0 PreserVision AREDS-2 [id number] Capsule 1 tab PO BID RF: 0 Stand-Alone Forms: [facility], Later [facility] Discharge Orders: Discharge Order (Routine); Ordered 10/04/18 Ordered By: Reagan Crook Admission Data Admit Date/Time: 10/03/18 21:29 Attending Provider: Reagan Crook Admit Provider: Maurilio Campos Primary Care Provider: Xochilt Quiroz Other Providers: Maurilio Campos Service: Telemetry Medical Other Interventions: Discharge Summary Assessment (RN) Last Done: 10/04/18 12:22 Pending Studies at Discharge: No DC Date/Time DO NOT enter until pt leaves facility: 10/04/18 13:39
== END 2018-10-04 13:39 | disposition home or self-care (01) | DRG 299 ==
LOC: ED 17:33 → 2N 21:29